=== PATIENT | male | born 1995 | race African-American/Black ===

== ENCOUNTER 2018-04-04 21:30 | Emergency (ER) | payer OTHER ==
--- NOTE | 2018-04-04 23:04 | RADIOLOGY REPORT (SQ) ---
EXAM DESCRIPTION: XR CHEST 2 VIEWS COMPLETED DATE/TME: 04/04/2018 22:36 CLINICAL HISTORY: 23 years Male, chest pain COMPARISON: None. FINDINGS: Adequate lung volume, clear parenchyma, normal cardiac silhouette, and intact bony thorax. IMPRESSION: No acute cardiopulmonary findings.
--- NOTE | 2018-04-04 23:42 | ER Document Report ---
ED Cardiac - General Chief Complaint: Rib Pain Stated Complaint: CHEST PAIN Time Seen by Provider: 04/04/18 22:53 Mode of Arrival: Medic Information source: Patient TRAVEL OUTSIDE OF THE [place] IN LAST 30 DAYS: No - HPI Patient complains to provider of: Chest pain Notes: Patient is here with complaints of chest pain. The patient is in the [place]. States that for the last 2 days she has had intermittent periods of very short fleeting left-sided sharp chest pain. Nothing makes it better or worse. It lasts just a few seconds when he is having it. He was having the symptoms earlier this evening and called EMS who brought him in. He denies any significant shortness of breath. No cough or fever. No abdominal pain. He denies any injury. He denies any nausea, vomiting, diarrhea. He denies any unilateral numbness, tingling, weakness. No recent travel outside the [place]. He denies any chronic medical problems. He denies any daily medications. He denies any history of high blood pressure, high cholesterol, diabetes, CAD. He denies smoking, alcohol use, drug use. He denies any recent long trips or surgeries, leg pain or leg swelling, history of DVT or PE, cancer. No family history of CAD or DVT. He states that he is not currently having the pain right now. He denies any other complaints at this time. Past Medical History - Social History Smoking Status: Never Smoker Family History: Reviewed & Not Pertinent Review of Systems - Review of Systems -: Yes All other systems reviewed and negative Physical Exam - Vital signs Vitals: Temp Pulse Resp BP Pulse Ox 98.5 F 54 L 16 115/68 99 04/04/18 22:05 04/04/18 22:05 04/04/18 22:05 04/04/18 22:05 04/04/18 22:05 - Notes Notes: GENERAL: alert, cooperative, nontoxic, no distress. HEAD: normocephalic, atraumatic EYES: conjunctiva pink without discharge, no external redness or swelling. EARS: no external swelling, no external redness NOSE: atraumatic, no external swelling MOUTH/THROAT: mucous membranes moist and pink, posterior pharynx without erythema, swelling, exudate. No trismus or drooling. NECK: soft, supple, full range of motion, no meningismus. CHEST: no distress, lungs clear and equal throughout. No wheezing, rales, rhonchi. CARDIAC: regular rate and rhythm, no murmur, normal capillary refill, normal pulses. No peripheral edema noted. ABDOMEN: Soft, nontender. BACK: full range of motion, no CVA tenderness. EXTREMITIES: full range of motion of all extremities. No redness, no swelling. NEURO: alert and oriented x 3, no focal deficits, full range of motion of all extremities. PYSCH: appropriate mood, affect. Patient is cooperative. SKIN: pink, warm, dry, no rash. Course - Re-evaluation Re-evalutation: 04/04/18 23:38 Patient is nontoxic-appearing with stable vitals. The patient is here with complaints of chest pain. Sling off for the last 2 days. States that it is intermittent, extremely brief and fleeting and sharp in nature. Nothing makes it better or worse when he is having it. He is not currently having the pain at this time. He has no shortness of breath. He has no CAD risk factors. This pain is very atypical for ACS, he has a normal EKG with no signs of ischemia, no signs of pericarditis. His heart exam and lung exam is normal. He has no chest wall tenderness. No rash. Patient has no PE risk factors, he is PERC rule negative for PE, therefore no further provocative testing is required to rule out PE in this patient that he was very unlikely to have a pulmonary embolism. This point patient is having very atypical chest pain and is not concerning for ACS or other significant acute causes. He is no risk for aneurysm or dissection. Patient had a normal chest x-ray as well as EKG. He declined wanting anything for pain at this time. At this point the patient can be discharged home with a prescription for Naprosyn. Instructions to follow-up with his primary care doctor at the next available appointment for recheck. Follow-up sooner for increasing pain, fever, numbness, tingling, weakness, syncope, persistent vomiting, rash, fever, or for any further concerns. The patient's emergency department workup and current diagnosis were explained to the patient and or family. Follow-up instructions were provided. Medications if prescribed were discussed. Instructions for when to return to the emergency department including specific worrisome symptoms were discussed with the patient and/or family. - Vital Signs Vital signs: Temp Pulse Resp BP Pulse Ox 98.5 F 54 L 16 115/68 99 04/04/18 22:05 04/04/18 22:05 04/04/18 22:05 04/04/18 22:05 04/04/18 22:05 - Diagnostic Test Radiology reviewed: Image reviewed, Reports reviewed - Normal chest x-ray - EKG Interpretation by Me EKG shows normal: Sinus rhythm, [place], Intervals, QRS Complexes, ST-T Waves Rate: Bradycardia Discharge - Discharge Clinical Impression: Atypical chest pain Condition: Stable Disposition: HOME, SELF-CARE Instructions: Chest Pain of Unclear Cause ([facility]) Additional Instructions: Take medications as prescribed. Follow-up with your doctor at the next available appointment. Follow-up sooner for increasing pain, fever, numbness, tingling, weakness, difficulty breathing or swelling, or for any further concerns. Prescriptions: Naproxen [Naprosyn] 500 mg PO BID #20 tablet Forms: Elevated Blood Pressure, Smoking Cessation Education Referrals: [facility] [Provider Group] - Follow up as needed
[2018-04-05 00:17] VITALS: BP 116/65
--- NOTE | 2018-04-05 09:36 | EKG REPORT ---
SEVERITY:- NORMAL ECG - SINUS RHYTHM : Confirmed by: Karthik Aguilera 05-Apr-2018 09:35:03
== END 2018-04-05 00:01 | disposition home or self-care (01) ==
LOC: ER 21:30
DX: R07.89 Other chest pain (principal); R00.1 Bradycardia, unspecified
CPT/HCPCS: 71046; 93005; 93010; 99284